=== PATIENT | female | born 1950 | race Caucasian/White ===

== ENCOUNTER 2016-12-10 01:36 | Emergency (ER) | payer MEDICARE, OTHER ==
[~2016-12-10 01:36] MED LIST: AMLODIPINE BESY10 MG PO; ASPIR 8181 MG PO; ASPIRIN EC325 MG PO; BENADRYL 25MG C25 MG PO; ESCITALOPRAM OX20 MG PO; ETODOLAC500 MG PO; FLONASE 0.05% N16 GM; GLUCOPHAGE 500500 MG PO; IMDUR ER TAB 6060 MG PO; K-DUR TAB 20 M20 MEQ PO; KLONOPIN TAB 00.5 MG PO; LASIX20 MG PO; LIPITOR TAB 2020 MG PO; MONTELUKAST SOD10 MG PO; PLAVIX 75 MG TA75 MG PO; PROTONIX40 MG PO; SPIRIVA RESPIMAT4 GM INH; SYNTHROID50 MCG PO; SYNTHROID75 MCG PO; VITAMIN D2000 UNIT PO; VOLTAREN 0.1%2.5 ML TP; ZESTRIL40 MG PO; ZOCOR40 MG PO
[2016-12-10 03:18] LABS: HEMOGLOBIN 12.4 gm/dl (12.3-15.3); RED BLOOD COUNT 4.1 M/UL (4.00-5.10)
[2016-12-10 03:44] LABS: BUN/CREATININE RATIO 21 (0-10)
== END 2016-12-10 06:07 | disposition home or self-care (01) ==
LOC: ER1 01:36
PROVIDERS: Family Medicine
DX: M79.604 Pain in right leg (principal); R07.9 Chest pain, unspecified; M54.9 Dorsalgia, unspecified; E11.9 Type 2 diabetes mellitus without complications; I10 Essential (primary) hypertension; Z79.82 Long term (current) use of aspirin; Z79.02 Long term (current) use of antithrombotics/antiplatelets; Z79.84 Long term (current) use of oral hypoglycemic drugs; Z79.899 Other long term (current) drug therapy
CPT/HCPCS: 36415; 71020; 72040; 80053; 82550; 82553; 83874; 84443; 84484; 85025; 85379; 99283; J7050; Q9963

== ENCOUNTER 2016-12-25 01:47 | Emergency (ER) | payer MEDICARE, OTHER ==
[2016-12-25 04:09] LABS: HEMOGLOBIN 12.2 gm/dl (12.3-15.3); RED BLOOD COUNT 4.01 M/UL (4.00-5.10); WHITE BLOOD COUNT 10.1 K/UL (4.5-11.0)
[2016-12-25 04:45] LABS: BUN/CREATININE RATIO 16 (0-10)
== END 2016-12-25 13:15 | disposition home or self-care (01) ==
LOC: ER1 01:47
PROVIDERS: Student in an Organized Health Care Education/Training Program
DX: R10.31 Right lower quadrant pain (principal); R10.32 Left lower quadrant pain; N89.8 Other specified noninflammatory disorders of vagina; J44.9 Chronic obstructive pulmonary disease, unspecified; E03.9 Hypothyroidism, unspecified; I10 Essential (primary) hypertension; E11.9 Type 2 diabetes mellitus without complications; Z88.0 Allergy status to penicillin; Z88.5 Allergy status to narcotic agent; Z88.8 Allergy status to other drugs, medicaments and biological substances; Z90.49 Acquired absence of other specified parts of digestive tract; Z79.02 Long term (current) use of antithrombotics/antiplatelets; Z79.84 Long term (current) use of oral hypoglycemic drugs; Z79.82 Long term (current) use of aspirin; Z79.899 Other long term (current) drug therapy
CPT/HCPCS: 36415; 36600; 51701; 71010; 80053; 80307; 81001; 82550; 82553; 82803; 83690; 83874; 84484; 85025; 85610; 85730; 87210; 93005; 96360; 99284; G0480; J7050; Q9962

== ENCOUNTER 2020-09-11 06:48 | Emergency (ER) | payer OTHER ==
[~2020-09-11 06:48] MED LIST changes: +BENZONATATE200 MG PO; +ZOFRAN ODT 4 MG4 MG PO
[2020-09-11 07:19] LABS: HEMOGLOBIN 12.5 gm/dl (12.3-15.3); RED BLOOD COUNT 4.11 M/UL (4.00-5.10); WHITE BLOOD COUNT 11.3 K/UL (4.5-11.0)
[2020-09-11 07:48] LABS: BUN/CREATININE RATIO 12 (0-10)
== END 2020-09-11 15:52 | disposition home or self-care (01) ==
LOC: ER1 06:48
PROVIDERS: Family Medicine
DX: R07.9 Chest pain, unspecified (principal); R06.02 Shortness of breath; E11.9 Type 2 diabetes mellitus without complications; I50.9 Heart failure, unspecified; J44.9 Chronic obstructive pulmonary disease, unspecified; Z86.718 Personal history of other venous thrombosis and embolism; Z88.5 Allergy status to narcotic agent
CPT/HCPCS: 36415; 71045; 80053; 82550; 82553; 83874; 84484; 85025; 85379; 85610; 93005; 93970; 99285

== ENCOUNTER 2020-12-13 17:25 | Emergency (ER) | payer OTHER ==
[2020-12-13 20:25] LABS: HEMOGLOBIN 11.9 gm/dl (12.3-15.3); RED BLOOD COUNT 3.74 M/UL (4.00-5.10); WHITE BLOOD COUNT 8.2 K/UL (4.5-11.0)
[2020-12-13 20:39] LABS: BUN/CREATININE RATIO 16 (0-10)
[2020-12-13] MEDS ORDERED: ONDANSETRON ODT4 MG SL (23:47)
[2020-12-13] MEDS ORDERED: ZITHROMAX250 MG PO (23:57)
== END 2020-12-14 00:06 | disposition home or self-care (01) ==
LOC: ER1 17:25
PROVIDERS: Physician Assistant
DX: E86.0 Dehydration (principal); E78.5 Hyperlipidemia, unspecified; J44.9 Chronic obstructive pulmonary disease, unspecified; E11.9 Type 2 diabetes mellitus without complications; I11.0 Hypertensive heart disease with heart failure; I50.9 Heart failure, unspecified; I25.2 Old myocardial infarction; Z88.5 Allergy status to narcotic agent; Z88.0 Allergy status to penicillin; Z90.710 Acquired absence of both cervix and uterus
CPT/HCPCS: 71045; 80053; 81001; 82550; 82553; 83690; 83874; 84484; 85025; 85379; 93005; 96374; 99284; J2405; Q9967

== ENCOUNTER 2021-03-26 21:11 | Emergency (ER) | payer OTHER ==
[~2021-03-26 21:11] MED LIST changes: +ONDANSETRON ODT4 MG SL; +ZITHROMAX250 MG PO
[2021-03-27] MEDS ORDERED: COLACE 100MG C100 MG PO (04:13)
== END 2021-03-27 04:37 | disposition home or self-care (01) ==
LOC: ER1 21:11
DX: S39.012A Strain of muscle, fascia and tendon of lower back, initial encounter (principal); S70.02XA Contusion of left hip, initial encounter; S40.012A Contusion of left shoulder, initial encounter; S00.93XA Contusion of unspecified part of head, initial encounter; E11.9 Type 2 diabetes mellitus without complications; I10 Essential (primary) hypertension; E03.9 Hypothyroidism, unspecified; Z90.49 Acquired absence of other specified parts of digestive tract; Z90.710 Acquired absence of both cervix and uterus; Z88.0 Allergy status to penicillin; Z88.5 Allergy status to narcotic agent; W19.XXXA Unspecified fall, initial encounter; Y92.9 Unspecified place or not applicable
CPT/HCPCS: 70450; 72125; 72128; 72131; 73060; 73502; 73552; 81001; 87086; 99284

== ENCOUNTER 2021-07-14 20:17 | Emergency (ER) | payer MEDICARE, OTHER ==
[~2021-07-14 20:17] MED LIST changes: +COLACE 100MG C100 MG PO
[2021-07-14 21:12] LABS: HEMOGLOBIN 11.9 gm/dl (12.3-15.3); RED BLOOD COUNT 3.79 M/UL (4.00-5.10)
[2021-07-14 21:34] LABS: BUN/CREATININE RATIO 12 (0-10)
[2021-07-14] MEDS ORDERED: ZOFRAN ODT 4 MG4 MG PO (23:21)
== END 2021-07-14 23:35 | disposition home or self-care (01) ==
LOC: ER1 20:17
PROVIDERS: Family Medicine
DX: R53.1 Weakness (principal); M25.511 Pain in right shoulder; G89.29 Other chronic pain; F41.9 Anxiety disorder, unspecified; R11.2 Nausea with vomiting, unspecified; E11.9 Type 2 diabetes mellitus without complications; F19.20 Other psychoactive substance dependence, uncomplicated; Z20.822 Contact with and (suspected) exposure to COVID-19; Z79.84 Long term (current) use of oral hypoglycemic drugs; Z79.82 Long term (current) use of aspirin; Z79.01 Long term (current) use of anticoagulants; Z88.5 Allergy status to narcotic agent
CPT/HCPCS: 0241U; 71045; 73030; 80053; 81001; 82550; 82553; 83605; 83690; 83735; 83874; 84439; 84443; 84484; 85025; 93005; 96374; 99284; J2405

== ENCOUNTER 2021-08-25 05:34 | Emergency (ER) | payer MEDICARE, OTHER ==
[2021-08-25 06:40] LABS: HEMOGLOBIN 10.6 gm/dl (12.3-15.3); RED BLOOD COUNT 3.54 M/UL (4.00-5.10); WHITE BLOOD COUNT 9.7 K/UL (4.5-11.0)
[2021-08-25 07:06] LABS: BUN/CREATININE RATIO 9 (0-10)
[2021-08-25] MEDS ORDERED: CITRATE OF MAG296 ML PO (09:37)
== END 2021-08-25 10:36 | disposition home or self-care (01) ==
LOC: ER1 05:34
PROVIDERS: Physician Assistant
DX: R10.9 Unspecified abdominal pain (principal); R11.2 Nausea with vomiting, unspecified; E11.9 Type 2 diabetes mellitus without complications; I10 Essential (primary) hypertension; J44.9 Chronic obstructive pulmonary disease, unspecified; Z88.0 Allergy status to penicillin; Z88.5 Allergy status to narcotic agent
CPT/HCPCS: 80053; 81001; 83690; 85025; 87086; 99284; Q9967

== ENCOUNTER 2021-11-13 01:43 | Emergency (ER) | payer MEDICARE, OTHER ==
[~2021-11-13 01:43] MED LIST changes: +CITRATE OF MAG296 ML PO
[2021-11-13 02:40] LABS: RED BLOOD COUNT 3.61 M/UL (4.00-5.10)
[2021-11-13 02:50] LABS: BUN/CREATININE RATIO 12 (0-10)
[2021-11-13] MEDS ORDERED: BENZONATATE100 MG PO (04:23)
[2021-11-13] MEDS ORDERED: ZOFRAN 4 MG TAB4 MG PO (04:23)
[2021-11-13] MEDS ORDERED: ZITHROMAX250 MG PO (04:23)
== END 2021-11-13 05:25 | disposition home or self-care (01) ==
LOC: ER1 01:43
PROVIDERS: Physician Assistant Medical
DX: J06.9 Acute upper respiratory infection, unspecified (principal); G89.29 Other chronic pain; M54.2 Cervicalgia; Z20.822 Contact with and (suspected) exposure to COVID-19; J44.9 Chronic obstructive pulmonary disease, unspecified; Z88.2 Allergy status to sulfonamides; Z88.0 Allergy status to penicillin; Z88.5 Allergy status to narcotic agent
CPT/HCPCS: 0240U; 71045; 72050; 80053; 85025; 94664; 99283

== ENCOUNTER 2022-01-31 17:52 | Emergency (ER) | payer OTHER, MEDICARE, MEDICAID ==
[~2022-01-31 17:52] MED LIST changes: +BENZONATATE100 MG PO; +ZOFRAN 4 MG TAB4 MG PO
== END 2022-01-31 19:50 | disposition home or self-care (01) ==
LOC: ER1 17:52
DX: S09.90XA Unspecified injury of head, initial encounter (principal); S10.93XA Contusion of unspecified part of neck, initial encounter; S30.0XXA Contusion of lower back and pelvis, initial encounter; I10 Essential (primary) hypertension; E11.9 Type 2 diabetes mellitus without complications; W01.0XXA Fall on same level from slipping, tripping and stumbling without subsequent striking against object, initial encounter; Y92.410 Unspecified street and highway as the place of occurrence of the external cause
CPT/HCPCS: 70450; 72125; 72170; 99284

== ENCOUNTER 2022-04-23 18:10 | Emergency (ER) | payer MEDICARE, OTHER ==
[2022-04-23 22:24] LABS: HEMOGLOBIN 11.6 gm/dl (12.3-15.3); RED BLOOD COUNT 3.72 M/UL (4.00-5.10); WHITE BLOOD COUNT 8.3 K/UL (4.5-11.0)
[2022-04-23 22:48] LABS: BUN/CREATININE RATIO 6 (0-10)
== END 2022-04-24 03:09 | disposition home or self-care (01) ==
LOC: ER1 18:10
PROVIDERS: Emergency Medicine
DX: J06.9 Acute upper respiratory infection, unspecified (principal); Z20.822 Contact with and (suspected) exposure to COVID-19; I25.2 Old myocardial infarction; E11.9 Type 2 diabetes mellitus without complications; I10 Essential (primary) hypertension; E78.5 Hyperlipidemia, unspecified; D64.9 Anemia, unspecified; Z90.49 Acquired absence of other specified parts of digestive tract; Z88.0 Allergy status to penicillin; Z88.5 Allergy status to narcotic agent
CPT/HCPCS: 70450; 71045; 80053; 81001; 83605; 83690; 85025; 87086; 99284; U0002